=== PATIENT | female | born 1995 | race Caucasian/White ===

== ENCOUNTER 2017-07-30 23:22 | Emergency (ER) | payer OTHER ==
[~2017-07-30] VITALS: Ht 170.2 cm; Wt 63.5 kg
[~2017-07-30 23:22] MED LIST: ATIVAN0.5 MG PO; MACROBID 100 M100 M1 PO; METHADONE HCL 110 M1; SYMBICORT
[2017-07-30] MEDS ORDERED: SUBOXONE 12 MG1 EACH SL (23:30)
[2017-07-30] MEDS ORDERED: VENTOLIN HFA 1818 GM INH (23:30)
[2017-07-31] MEDS ORDERED: VENTOLIN HFA 1818 GM INH (00:59)
[2017-07-31] MEDS ORDERED: AZITHROMYCIN 2250 MG PO (00:59)
[2017-07-31] MEDS ORDERED: PREDNISONE 20 M20 M1 PO (00:59)
[2017-07-31 01:20] VITALS: BP 128/74
== END 2017-07-31 01:21 | disposition home or self-care (01) ==
LOC: M.ERS 23:22
DX: J45.901 Unspecified asthma with (acute) exacerbation (principal)

== ENCOUNTER 2018-05-20 15:48 | Emergency (ER) | payer OTHER ==
[~2018-05-20] VITALS: Ht 170.2 cm; Wt 59.0 kg
[~2018-05-20 15:48] MED LIST changes: +AZITHROMYCIN 2250 MG PO; +PREDNISONE 20 M20 M1 PO; +SUBOXONE 12 MG1 EACH SL; +VENTOLIN HFA 1818 GM INH
[2018-05-20] MEDS ORDERED: CLONAZEPAM 1 MG1 M1 PO ×2 (16:03→16:04)
[2018-05-20 16:06] LABS: URINE BILIRUBIN NEGATIVE (Negative); URINE BLOOD NEGATIVE (Negative); URINE CLARITY CLEAR; URINE COLOR YELLOW; URINE GLUCOSE-RANDOM NEGATIVE (Negative); URINE KETONES NEGATIVE (Negative); URINE LEUKOCYTES-REFLEX NEGATIVE (Negative); URINE NITRITE-REFLEX NEGATIVE (Negative); URINE PROTEIN NEGATIVE (Negative); URINE SPECIFIC GRAVITY 1.015 (1.005-1.030); URINE UROBILINOGEN 0.2 E.U./dl (0.2-1.0)
[2018-05-20 17:07] LABS: ABSOLUTE EOSINOPHILS 0.1 thou/uL (0.0-0.7); ABSOLUTE MONOCYTES 0.2 thou/uL (0.0-1.2); ABSOLUTE NEUTROPHILS 5.1 thou/uL (1.6-8.1); BASOPHILS 0.8 %; HEMATOCRIT 44.9 % (37.0-47.0); HEMOGLOBIN 15.2 gm/dL (12.0-15.0); MCH 29.9 pg (26.0-34.0); MCHC 33.8 g/dL (28.0-37.0); MCV 88.3 fL (80.0-100.0); MONOCYTES 3.1 %; NUCLEATED RBCS 0 /100WBC; PLATELET COUNT* 279 thou/uL (150-400); POLYS 78.1 %; RBC 5.08 mil/uL (4.20-5.00); RDW-CV 13.4 % (10.5-14.5); WBC 6.5 thou/uL (4.0-11.0)
[2018-05-20 17:19] LABS: ALBUMIN 4.3 g/dL (3.4-5.0); CALCIUM 9.7 mg/dL (8.5-10.1); CREATININE 0.9 mg/dL (0.6-1.3); POTASSIUM 3.7 mmol/L (3.5-5.1); TOTAL BILIRUBIN 0.6 mg/dL (<0.1-1.0); TOTAL PROTEIN 7.7 g/dL (6.4-8.2)
[2018-05-20] MEDS ORDERED: ZOFRAN ODT4 MG PO (17:35)
[2018-05-20 17:46] VITALS: BP 100/52
== END 2018-05-20 17:47 | disposition home or self-care (01) ==
LOC: M.ERS 15:48
PROVIDERS: Nurse Practitioner Psychiatric/Mental Health
DX: R11.2 Nausea with vomiting, unspecified (principal); R10.13 Epigastric pain; R19.7 Diarrhea, unspecified; J45.909 Unspecified asthma, uncomplicated; Z88.6 Allergy status to analgesic agent

== ENCOUNTER 2019-03-18 01:15 | Emergency (ER) | payer OTHER ==
[~2019-03-18] VITALS: Ht 170.2 cm; Wt 49.9 kg
[~2019-03-18 01:15] MED LIST changes: +CLONAZEPAM 1 MG1 M1 PO; +ZOFRAN ODT4 MG PO
[2019-03-18] MEDS ORDERED: BUSPIRONE HCL10 MG (01:27)
[2019-03-18 02:27] VITALS: BP 110/70
== END 2019-03-18 02:27 | disposition home or self-care (01) ==
LOC: M.ERS 01:15
DX: S61.011A Laceration without foreign body of right thumb without damage to nail, initial encounter (principal); J45.909 Unspecified asthma, uncomplicated; Z88.8 Allergy status to other drugs, medicaments and biological substances; W26.8XXA Contact with other sharp object(s), not elsewhere classified, initial encounter; Y93.89 Activity, other specified; Y92.89 Other specified places as the place of occurrence of the external cause; Y99.8 Other external cause status

== ENCOUNTER 2019-08-05 14:41 | Emergency (ER) | payer OTHER ==
[~2019-08-05] VITALS: Ht 170.2 cm; Wt 56.7 kg
[~2019-08-05 14:41] MED LIST changes: +BUSPIRONE HCL10 MG
[2019-08-05 15:43] LABS: ABSOLUTE BASOPHILS 0.1 thou/uL (0.0-0.2); ABSOLUTE LYMPHOCYTES 0.9 thou/uL (0.8-5.3); ABSOLUTE MONOCYTES 0.4 thou/uL (0.0-1.2); ABSOLUTE NEUTROPHILS 7.7 thou/uL (1.6-8.1); BASOPHILS 0.6 %; EOSINOPHILS 0.5 %; HEMATOCRIT 40.3 % (37.0-47.0); MCH 31.1 pg (26.0-34.0); MCHC 34.8 g/dL (28.0-37.0); MCV 89.5 fL (80.0-100.0); MONOCYTES 3.9 %; MPV 8.2 fl. (7.2-11.1); NUCLEATED RBCS 0 /100WBC; PLATELET COUNT* 280 thou/uL (150-400); RBC 4.51 mil/uL (4.20-5.00); RDW-CV 12.8 % (10.5-14.5); WBC 9.1 thou/uL (4.0-11.0)
[2019-08-05 15:59] LABS: CALCIUM 9.4 mg/dL (8.5-10.1); CREATININE 0.9 mg/dL (0.6-1.3); POTASSIUM 3.6 mmol/L (3.5-5.1)
[2019-08-05 16:03] LABS: ALBUMIN 4.4 g/dL (3.4-5.0); TOTAL BILIRUBIN 0.6 mg/dL (<0.1-1.0); TOTAL PROTEIN 7.8 g/dL (6.4-8.2)
[2019-08-05] MEDS ORDERED: NAPROSYN500 MG PO (18:11)
[2019-08-05] MEDS ORDERED: PHENERGAN 25 MG25 M1 PO (18:11)
[2019-08-05] MEDS ORDERED: PROMS25 WY RECTAL (18:11)
[2019-08-05 18:40] VITALS: BP 97/48
== END 2019-08-05 18:40 | disposition home or self-care (01) ==
LOC: M.ERS 14:41
PROVIDERS: Nurse Practitioner Family
DX: N94.6 Dysmenorrhea, unspecified (principal); R11.15 Cyclical vomiting syndrome unrelated to migraine; R11.2 Nausea with vomiting, unspecified; J45.909 Unspecified asthma, uncomplicated; Z88.8 Allergy status to other drugs, medicaments and biological substances